=== PATIENT | male | born 1985 | race African-American/Black ===

== ENCOUNTER 2022-01-31 06:23 | Emergency (ER) | payer SELFPAY ==
[2022-01-31] MEDS ORDERED: Sodium Chloride 0.9% 2.5 ML Syringe FLUSH PRN (06:46)
[2022-01-31] MEDS ORDERED: Sodium Chloride 0.9% 10 ML Syringe FLUSH PRN (06:46)
[2022-01-31] MEDS ORDERED: Sodium Chloride 0.9% 1,000 ML IV ONE (06:46)
[2022-01-31 07:43] LABS: BLOOD UREA NITROGEN,BUN 10 mg/dL (7.0-18.0); CARBON DIOXIDE,CO2 25.3 mmol/L (21.0-32.0); CHLORIDE,CL 102 mmol/L (98-107); GLUCOSE RANDOM 101 mg/dL (74-106); LIPASE 74 U/L (73-393); SODIUM,NA 137 mmol/L (136-148)
[2022-01-31 07:51] LABS: CORONAVIRUS COVID-19 NAA POSITIVE (NEGATIVE); INFLUENZA A NAA NEGATIVE (NEGATIVE); INFLUENZA B NAA NEGATIVE (NEGATIVE)
== END 2022-01-31 08:24 | disposition home or self-care (01) ==
LOC: MW.ED 06:23
DX: U07.1 COVID-19 (principal); Z91.041 Radiographic dye allergy status
CPT/HCPCS: 0240U; 36415; 80053; 83690; 85025; 96360; 99284; J7030; 99283